=== PATIENT | male | born 1955 | race Caucasian/White ===

== ENCOUNTER → 2016-09-22 | Outpatient (CLI) | payer BC ==
[~2016-09-22] VITALS: Ht 177.8 cm; Wt 100.0 kg
[~2016-09-22] MED LIST: COZAAR 25MG25 MG/TAB PO; COZAAR 50MG50 MG/TAB PO; LUMIGAN 2.5 ML2.5 M1 OP
[2016-09-22 12:44] VITALS: BP 122/71; PULSE 71
[2016-09-22 14:00] VITALS: BP 158/89; PULSE 68
== END ==
LOC: COL.RAD 12:00
DX: D11.7 Benign neoplasm of other major salivary glands (principal)

== ENCOUNTER 2021-06-29 08:00 | Outpatient (RCR) | payer MEDICARE | END 2021-06-29 09:00 | disposition home or self-care (01) | LOC: WSPT 08:00 | DX: M75.82 Other shoulder lesions, left shoulder (principal); M77.8 Other enthesopathies, not elsewhere classified ==